=== PATIENT | male | born 1955 | race Caucasian/White ===

== ENCOUNTER → 2018-05-17 | Outpatient (CLI) | payer BC ==
[~2018-05-17] MED LIST: LOSA50TA14 PO; MULT-516 PO; VITAMIN D PO; [UNRECOGNIZED DRUG - OTHER]
[2018-05-17 11:41] LABS: ALANINE AMINOTRANSFERASE 40 U/L (12-78); ANION GAP 5 mmol/L (5-15); CALCIUM 8.9 mg/dL (8.5-10.1); CHLORIDE 110 mmol/L (98-107); CREATININE 0.98 mg/dL (0.7-1.3)
[2018-05-17 11:43] LABS: ALKALINE PHOSPHATASE 88 U/L (45-117); BILIRUBIN,TOTAL 0.5 mg/dL (0.2-1.0); TOTAL PROTEIN 7.2 g/dL (6.4-8.2)
== END | disposition home or self-care (01) ==
LOC: STAR 10:27
PROVIDERS: ATTEND Orthopaedic Surgery
DX: Z01.818 Encounter for other preprocedural examination (principal); M79.672 Pain in left foot; M25.572 Pain in left ankle and joints of left foot
CPT/HCPCS: 36415; 80053; 93005

== ENCOUNTER 2018-05-28 11:32 | Day surgery (SDC) | payer BC ==
[~2018-05-28] VITALS: Ht 182.9 cm; Wt 133.0 kg
[~2018-05-28 11:32] MED LIST changes: +BUPIVACAINE/PF 0.5% ONE; +LIDOCAINE 1%, 20ML ONE
[2018-05-28] MEDS ORDERED: LACTATED RINGERS 1,000 ML IV SCH (11:41)
[2018-05-28] MEDS ORDERED: MIDAZOLAM 1 MG/ML, 2ML ONE (12:52)
[2018-05-28] MEDS ORDERED: FENTANYL PF 100 MCG/2ML ONE ×3 (12:52→15:52)
[2018-05-28] MEDS ORDERED: METOPROLOL 1 MG/ML, 5ML ONE (14:36)
[2018-05-28] MEDS ORDERED: CEFAZOLIN 1,000 MG ONE (14:36)
[2018-05-28] MEDS ORDERED: DEXAMETHASONE 4 MG/ML, 1ML ONE (14:36)
[2018-05-28] MEDS ORDERED: PROPOFOL 10 MG/ML, 20ML ONE (14:36)
[2018-05-28] MEDS ORDERED: ACETAMINOPHEN 325 MG TABLET PO PRN (15:00)
[2018-05-28] MEDS ORDERED: KETOROLAC 30 MG/1 ML IV PRN (15:00)
[2018-05-28] MEDS ORDERED: hydrALAzine 20 MG/ML, 1ML IV PRN (15:00)
[2018-05-28] MEDS ORDERED: OXYcodone 5 MG/5 ML ORAL.SOL UDC PO PRN (15:00)
[2018-05-28] MEDS ORDERED: PROMETHAZINE 25 MG/ML, 1ML IV PRN (15:00)
[2018-05-28] MEDS ORDERED: HYDROmorphone 2 MG/ML, 1ML IVPush PRN (15:00)
[2018-05-28] MEDS ORDERED: LABETALOL 5MG/ML, 20ML IV PRN (15:00)
[2018-05-28] MEDS ORDERED: FENTANYL PF 100 MCG/2ML IV PRN (15:00)
[2018-05-28] MEDS ORDERED: DIAZEPAM 5 MG/ML, 2ML IVPush PRN (15:00)
[2018-05-28] MEDS ORDERED: ALBUTEROL SULFATE 2.5 MG/3 ML NPPB PRN (15:00)
[2018-05-28] MEDS ORDERED: MEPERIDINE/PF 25MG/0.5ML IVPush PRN (15:00)
== END 2018-05-28 18:10 | disposition home or self-care (01) ==
LOC: OUT 11:32
PROVIDERS: ATTEND Orthopaedic Surgery
DX: S92.322K Displaced fracture of second metatarsal bone, left foot, subsequent encounter for fracture with nonunion (principal); X58.XXXD Exposure to other specified factors, subsequent encounter; M21.6X2 Other acquired deformities of left foot; M65.872 Other synovitis and tenosynovitis, left ankle and foot; M25.872 Other specified joint disorders, left ankle and foot; M24.672 Ankylosis, left ankle; M19.072 Primary osteoarthritis, left ankle and foot; Z87.891 Personal history of nicotine dependence
CPT/HCPCS: 27635; 28122; 28322; 29891; 29894; 29898; 64445; 64447; 73620; 76000; C1713; J0690; J1100; J2250; J2704; J3010; J7120; J3490